=== PATIENT | female | born 1975 | race Caucasian/White ===

== ENCOUNTER 2017-12-19 09:28 | Emergency (ER) | payer OTHER ==
[~2017-12-19] VITALS: Ht 170.2 cm; Wt 131.5 kg
[~2017-12-19 09:28] MED LIST: BENTYL10 MG PO; BYSTOLIC 5 MG5 M1; BYSTOLIC 5 MG5 M1 PO; CEFDINIR300 MG PO; CYTOMEL 25 MCG25 MC1 PO; DOXYCYCLINE 10100 MG PO; EFFEXOR XR150 MG PO; HIZENTRA2 GM/10 ML; MECLIZINE HCL25 M1 PO; MICROGESTIN1 EAC1; PREDNISONE 10 M10 MG PO; SYNTHROID50 MCG PO; TRAZODONE HCL50 MG PO; ZOFRAN 4 MG ORAL4 MG PO
[2017-12-19 09:38] VITALS: BP 150/106
[2017-12-19] MEDS ORDERED: BUTALB-APAP-CA1 EACH PO (09:44)
== END 2017-12-19 10:15 | disposition left against medical advice (07) ==
LOC: M.ERS 09:28
DX: Z53.21 Procedure and treatment not carried out due to patient leaving prior to being seen by health care provider (principal)

== ENCOUNTER 2018-02-02 21:29 | Emergency (ER) | payer OTHER ==
[~2018-02-02] VITALS: Ht 170.2 cm; Wt 131.5 kg
[~2018-02-02 21:29] MED LIST changes: +BUTALB-APAP-CA1 EACH PO
[2018-02-02] MEDS ORDERED: HYDROCHLOROTHIA25 M2 PO (21:48)
[2018-02-02 22:13] LABS: ABSOLUTE LYMPHOCYTES 2.2 thou/uL (0.8-5.3); ABSOLUTE MONOCYTES 0.9 thou/uL (0.0-1.2); ABSOLUTE NEUTROPHILS 5.5 thou/uL (1.6-8.1); BASOPHILS 0.3 %; EOSINOPHILS 0.1 %; HEMATOCRIT 42.3 % (37.0-47.0); HEMOGLOBIN 14.2 gm/dL (12.0-15.0); LYMPHOCYTES 25.6 %; MCH 28.4 pg (26.0-34.0); MCHC 33.6 g/dL (28.0-37.0); MCV 84.4 fL (80.0-100.0); MONOCYTES 10.6 %; MPV 6.8 fl. (7.2-11.1); NUCLEATED RBCS 0 /100WBC; PLATELET COUNT* 366 thou/uL (150-400); POLYS 63.4 %; RBC 5.02 mil/uL (4.20-5.00); RDW-CV 14.1 % (10.5-14.5); WBC 8.6 thou/uL (4.0-11.0)
[2018-02-02 22:16] LABS: URINE BILIRUBIN NEGATIVE (Negative); URINE BLOOD 1+ (Negative); URINE CLARITY CLEAR; URINE COLOR YELLOW; URINE GLUCOSE-RANDOM NEGATIVE (Negative); URINE KETONES NEGATIVE (Negative); URINE LEUKOCYTES-REFLEX NEGATIVE (Negative); URINE NITRITE-REFLEX NEGATIVE (Negative); URINE PROTEIN 1+ (Negative); URINE UROBILINOGEN 0.2 E.U./dl (0.2-1.0)
[2018-02-02 22:27] LABS: CALCIUM 9.4 mg/dL (8.5-10.1); CREATININE 0.9 mg/dL (0.6-1.3); POTASSIUM 3.1 mmol/L (3.5-5.1)
[2018-02-02 22:32] LABS: ALBUMIN 3.8 g/dL (3.4-5.0); TOTAL BILIRUBIN 0.3 mg/dL (<0.1-1.0); TOTAL PROTEIN 8.7 g/dL (6.4-8.2)
[2018-02-02 22:39] LABS: CASTS None Seen /LPF (None Seen); SQUAMOUS 4-10 Moderate /LPF (0-3)
[2018-02-02 22:40] LABS: BACTERIA-REFLEX 1-9 Few /HPF (None Seen); CRYSTALS None Seen /LPF (None Seen); URINE RBC 0-2 Rare /HPF (0-2); URINE WBC-REFLEX 0-5 Rare /HPF (0-5)
[2018-02-02] MEDS ORDERED: PHENERGAN 25 MG25 MG PO (23:02)
[2018-02-02] MEDS ORDERED: ULTRAM 50MG TAB50 MG PO (23:03)
[2018-02-02 23:15] VITALS: BP 129/99
== END 2018-02-02 23:41 | disposition home or self-care (01) ==
LOC: M.ERS 21:29
PROVIDERS: Nurse Practitioner
DX: A08.4 Viral intestinal infection, unspecified (principal); I10 Essential (primary) hypertension; J32.9 Chronic sinusitis, unspecified